=== PATIENT | female | born 1990 | race Caucasian/White ===

== ENCOUNTER 2017-06-21 21:54 | Emergency (ER) | payer OTHER ==
[2017-06-21 22:18] VITALS: RESP 18; TEMP 98.2; O2SAT 98
--- NOTE | 2017-06-21 23:23 | ED PDOC ---
HPI: Abdomen Time Seen by Provider: 06/21/17 22:19 Chief Complaint (Nursing): Abdominal Pain Chief Complaint (Provider): Flank Pain Bilaterally History Per: Patient History/Exam Limitations: no limitations Onset/Duration Of Symptoms: Worse Since (30 days ago) Current Symptoms Are (Timing): Still Present Location Of Pain/Discomfort: Epigastric, Suprapubic Additional Complaint(s): 27 yo female with a history of kidney stones, presents to the ED complaining of worsened flank pain,bilaterally, and abdominal pain towards both the epigastric and suprapubic region, onset of 30 days ago. Patient also reports of symptoms of dysuria, hematuria, and frequency, nausea, but no vomiting. Of note, [facility] with a urinary tract infection and given antibiotics and suggested to take Motrin. However, the patient states that she feels worse and experiences no relief. Past Medical History Reviewed: Historical Data, Nursing Documentation, Vital Signs Vital Signs: Last Vital Signs Temp 98.2 F 06/22/17 02:26 Pulse 76 06/22/17 02:26 Resp 18 06/22/17 02:26 BP 106/52 L 06/22/17 02:26 Pulse Ox 98 06/22/17 05:49 - Medical History PMH: Kidney Stones - Surgical History Other surgeries: stent for kidney stones; laser treatment for kidney stones - Family History Family History: States: Unknown Family Hx - Social History Current smoker - smoking cessation education provided: No Ex-Smoker (has not smoked in the last 12 months): No Alcohol: None Drugs: Denies - Home Medications Home Medications: Ambulatory Orders Medication Instructions Recorded Ciprofloxacin/Ciprofloxa HCl 500 mg PO BID #20 tab 06/04/15 [Ciprofloxacin] traMADol [Ultram] 50 mg PO TID PRN #15 tab 06/04/15 Levofloxacin [Levaquin] 750 mg PO DAILY #14 tablet 06/22/17 Naproxen [Naprosyn] 500 mg PO BID #30 tablet 06/22/17 - Allergies Allergies/Adverse Reactions: Allergies Allergy/AdvReac Type Severity Reaction Status Date / Time No Known Allergies Allergy Verified 06/04/15 11:22 Review of Systems ROS Statement: Except As Marked, All Systems Reviewed And Found Negative Gastrointestinal: Positive for: Nausea, Abdominal Pain (epigastric and suprapubic). Negative for: Vomiting Genitourinary Female: Positive for: Dysuria, Frequency, Hematuria Musculoskeletal: Positive for: Back Pain (flank pain bilaterally) Physical Exam - Reviewed Nursing Documentation Reviewed: Yes Vital Signs Reviewed: Yes - Physical Exam Appears: Positive for: Uncomfortable, In Acute Distress Head Exam: Positive for: ATRAUMATIC, NORMOCEPHALIC Skin: Positive for: Warm, Dry Eye Exam: Positive for: EOMI, PERRL ENT: Positive for: Other (tacky mucous membranes) Neck: Positive for: Painless ROM, Supple Cardiovascular/Chest: Positive for: Regular Rate, Rhythm. Negative for: Murmur Respiratory: Positive for: Normal Breath Sounds. Negative for: Respiratory Distress Gastrointestinal/Abdominal: Positive for: Soft, Tenderness (epigastric and suprapubic tenderness to palpation). Negative for: Mass, Distended, Guarding, Rebound Back: Positive for: L CVA Tenderness, R CVA Tenderness Extremity: Positive for: Normal ROM. Negative for: Deformity Lymphatic: Negative for: Adenopathy Neurologic/Psych: Positive for: Alert. Negative for: Motor/Sensory Deficits - Laboratory Results Result Diagrams: 06/21/17 23:30 06/21/17 23:30 - ECG O2 Sat by Pulse Oximetry: 98 (RA) Pulse Ox Interpretation: Normal Medical Decision Making Medical Decision Making: Time: --22:58 Impression: --Bilateral flank pain Differential: --pyelonephritis vs renal colic vs dehydration vs sepsis vs cystitis Plan: --vbg shock panel --CT ABD & Pelvis w/o po contrast --Labs --Lipase --ED Urine Dip --ED Urine Preg --Blood Culture --Urine Culture --Iv insetion --Urinalysis Reassess --00:[address] patient [address] over to [address] Story pending CT scan. Scribe Attestation: Documented by Raymon Chun acting as a scribe for Day Bell MD. Provider Attestation: All medical record entries made by the Scribe were at my direction and personally dictated by me. I have reviewed the chart and agree that the record accurately reflects my personal performance of the history, physical exam, medical decision making, and the department course for this patient. I have also personally directed, reviewed, and agree with the discharge instructions and disposition. Disposition - Clinical Impression Clinical Impression: Bilateral flank pain, Pyelonephritis - Patient ED Disposition Is Patient to be Admitted: Yes Discussed With : Feliz Story Doctor Will See Patient In The: ED - Disposition Disposition: Transfer of Care Disposition Time: 00:00 Condition: FAIR Prescriptions: Levofloxacin [Levaquin] 750 mg PO DAILY #14 tablet Naproxen [Naprosyn] 500 mg PO BID #30 tablet Print Language: KYRGYZ Patient Signed Over To: Feliz Story
[2017-06-21 23:40] LABS: VENOUS BLOOD GAS BASE EXCESS 0.3 mmol/L (0.0-2.0); VENOUS BLOOD GAS PCO2 48 mmHg (40-60); VENOUS BLOOD GAS PO2 23 mm/Hg (30-55); VENOUS BLOOD PH 7.35 (7.32-7.43)
[2017-06-21 23:45] LABS: BASO % 0.4 % (0.0-2.0); EOS # 0.9 K/uL (0.0-0.7); EOS % 9.6 % (0.0-4.0); HEMOGLOBIN 12.7 g/dL (12.0-16.0); LYMPH # 2.3 K/uL (1.0-4.3); LYMPH % 24.4 % (20.0-40.0); MEAN CELL VOLUME 91.3 fl (81.0-99.0); MEAN CORPUSCULAR HEMOGLOBIN 30.7 pg (27.0-31.0); MEAN CORPUSCULAR HGB CONC 33.7 g/dL (33.0-37.0); MEAN PLATELET VOLUME 9.4 fl (7.2-11.7); MONO # 0.7 K/uL (0.0-0.8); MONO % 7.6 % (0.0-10.0); NEUT # 5.5 K/uL (1.8-7.0); NRBC % 0.2 % (0.0-0.0); RBC 4.13 Mil/uL (3.80-5.20); RED CELL DISTRIBUTION WIDTH 13.4 % (11.5-14.5); WHITE BLOOD COUNT 9.5 K/uL (4.8-10.8)
[2017-06-21 23:52] LABS: SQUAMOUS EPITHIAL 2 /hpf (0-5); URINE BACTERIA MANY (<OCC); URINE BILIRUBIN NEGATIVE (NEGATIVE); URINE BLOOD LARGE (NEGATIVE); URINE CLARITY TURBID (Clear); URINE COLOR YELLOW (YELLOW); URINE GLUCOSE (UA) NEG (Normal); URINE LEUKOCYTE ESTERASE LARGE Leu/uL (Negative); URINE PROTEIN 100 mg/dL (NEGATIVE); URINE UROBILINOGEN 0.2-1.0 mg/dL (0.2-1.0)
[2017-06-21 23:59] LABS: ALB/GLOB RATIO 1.1 (1.0-2.1); ALBUMIN 3.4 g/dL (3.5-5.0); ALT/SGPT 52 U/L (9-52); AST/SGOT 31 U/L (14-36); BLOOD UREA NITROGEN 18 mg/dl (7-17); CALCIUM 9.5 mg/dL (8.4-10.2); GFR AFRICAN-AMERICAN > 60; GFR NON-AFRICAN AMERICAN > 60; LIPASE 126 U/L (23-300)
[2017-06-22] MEDS ORDERED: Sodium Chloride 0.9% 1,000 ML IV STA (00:09)
[2017-06-22] MEDS ORDERED: cefTRIAXone (Rocephin) 1 gm Inj ONE (00:17)
--- NOTE | 2017-06-22 00:44 | ED PDOC ---
- Laboratory Results Result Diagrams: 06/21/17 23:30 06/21/17 23:30 - ECG O2 Sat by Pulse Oximetry: 98 (RA) Pulse Ox Interpretation: Normal Medical Decision Making Medical Decision Making: Time: --00:00 Reassess --Patient signed over to the provider by Dr. Bell pending CT scan. --01:01 EXAM: CT Abdomen and Pelvis Without Intravenous Contrast EXAM DATE/TIME: 06/21/2017 10:58 PM CLINICAL HISTORY: 27 years old, female; Pain; Abdominal pain; Flank; Other: Bilateral flank pain; Prior surgery; Surgery date: 6+ months; Surgery type: Left stent placement for kidney stone 4yrs ago. Laser treatment for kidney stones. ; Additional info: Bilateral flank pain severe hematuria h/o stone TECHNIQUE: Axial computed tomography images of the abdomen and pelvis without intravenous contrast. All CT scans at this facility use one or more dose reduction techniques, viz.: automated exposure control; ma/kV adjustment per patient size (including targeted exams where dose is matched to indication; i.e. head); or iterative reconstruction technique. COMPARISON: CT - ABD PELVIS W/O PO OR IV CONT 2015-06-04 13:29 FINDINGS: Lower thorax: There is minimal bibasilar atelectasis. ABDOMEN: Liver: Unremarkable. Gallbladder and bile ducts: Unremarkable. No calcified stones. No ductal dilation. Pancreas: Unremarkable. No ductal dilation. Spleen: Unremarkable. No splenomegaly. Adrenals: Unremarkable. No mass. Kidneys and ureters: Several nonobstructing stones in in both kidneys. There is multifocal cortical scarring in the left kidney with moderate hydronephrosis and hydroureter. There is a left ureteral stent present, with dense calcification around the distal end of the stent within the bladder, and some calcification within the ureter and around the proximal end of the stent within the renal pelvis and Stomach and bowel: Unremarkable. No obstruction. No mucosal thickening. Appendix: No findings to suggest acute appendicitis. PELVIS: Bladder: Unremarkable. No stones. Reproductive: Unremarkable as visualized. ABDOMEN and PELVIS: Intraperitoneal space: Unremarkable. No free air. No significant fluid collection. Bones/joints: No acute fracture. No dislocation. Soft tissues: There is a small fat-containing umbilical hernia. Vasculature: Unremarkable. No abdominal aortic aneurysm. Lymph nodes: Unremarkable. No enlarged lymph nodes. IMPRESSION: Moderate left hydronephrosis. There is calcification around the proximal and distal ends of the left ureteral stent. --01:49 Patient reports improvement of symptoms and is stable for discharge home. Tolerating PO, vitals stable. Return precautions given. Diagnosis: Pyelonephritis Scribe Attestation: Documented by Raymon Chun acting as a scribe for Jarad Hickman MD. Provider Attestation: All medical record entries made by the Scribe were at my direction and personally dictated by me. I have reviewed the chart and agree that the record accurately reflects my personal performance of the history, physical exam, medical decision making, and the department course for this patient. I have also personally directed, reviewed, and agree with the discharge instructions and disposition. Disposition - Clinical Impression Clinical Impression: Bilateral flank pain, Pyelonephritis - POA Present On Arrival: None - Disposition Referrals: Stephani Hirsch MD [Medical Doctor] - Disposition: Routine/Home Disposition Time: :49 Condition: FAIR Prescriptions: Levofloxacin [Levaquin] 750 mg PO DAILY #14 tablet Naproxen [Naprosyn] 500 mg PO BID #30 tablet Instructions: Kidney Infection (DC) Forms: [facility] ([place] Islander) Print Language: CHINESE
[2017-06-22 02:28] VITALS: BP 106/52; PULSE 76
--- NOTE | 2017-06-22 11:15 | CT ---
PROCEDURE: CT Abdomen and Pelvis without intravenous contrast HISTORY: bilateral flank pain severe hematuria h/o stone COMPARISON: Unenhanced abdomen and pelvis CT 06/04/2015. TECHNIQUE: Helical CT of the abdomen and pelvis was performed without oral or intravenous contrast as per referring physician request. Contrast Dose: None Radiation dose: Total exam DLP = 596.00 mGy-cm. This CT exam was performed using one or more of the following dose reduction techniques: Automated exposure control, adjustment of the mA and/or kV according to patient size, and/or use of iterative reconstruction technique. FINDINGS: LOWER THORAX: Trace bibasilar dependent atelectasis is noted as well as small hiatal hernia. No significant interval change in the appearance of the visualized lung bases overall. LIVER: Unremarkable. No gross lesion or ductal dilatation. GALLBLADDER AND BILE DUCTS: Unremarkable. PANCREAS: Unremarkable. No gross lesion or ductal dilatation. SPLEEN: Unremarkable. ADRENALS: Unremarkable. No mass. KIDNEYS AND URETERS: There is moderate left hydronephrosis increased in the interval with the left double-J ureteral stent again identified in position. 1.2 by 0.8 cm calculus appears to be in the center of the proximal coil of the left ureteral stent and there is gross calcification in the periphery of the distal coil in the urinary bladder now appreciated in the interval, likely a function of chronicity of the stent. Defects in the periphery of the left renal cortex suggests multiple chronic left renal infarcts. Underlying lesions are not excluded at the left kidney and would be better evaluated by contrast CT or MRI with and without contrast. This is particularly true in the left renal apex which appears slightly hyperdense when compared to the surrounding renal parenchyma. Punctate intrarenal calculi are identified at the upper mid lower pole right kidney, nonobstructive. The urinary bladder is unremarkable exclusive of the calcified distal left ureteral stent coil. No mural thickening or nodularity is identified grossly. VASCULATURE: Unremarkable. No aortic aneurysm. BOWEL: The stomach is distended with retained food. Fecalization throughout a non obstructive small bowel is appreciated throughout the majority of small bowel in the abdomen which is a nonspecific pattern. Large bowel is also nonobstructed with prominent retained fecal material scattered throughout the transverse and ascending colon segments and a mild amount otherwise. APPENDIX: Unremarkable. Normal appendix. PERITONEUM: Unremarkable. No free fluid. No free air. LYMPH NODES: Unremarkable. No enlarged lymph nodes. BLADDER: See renal section above. REPRODUCTIVE: Unremarkable. BONES: No acute fracture. OTHER FINDINGS: None. IMPRESSION: Likely chronic left ureteral stent in position with prominent calcification in the center of the proximal coil of the stent at the left renal pelvis and gross calcifications surrounding the periphery of the distal coil in the urinary bladder. There is also an increase in left hydronephrosis now is appears moderate rather than presenting as limited fullness previously. 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 Underlying lesion not excluded. Follow-up MRI without contrast is advised when feasible. Multiple punctate intrarenal calculi right kidney, nonobstructive. Other lesser findings as discussed above.
== END 2017-06-22 02:28 | disposition home or self-care (01) ==
LOC: H.ER 21:54
DX: N10 Acute pyelonephritis (principal); R10.9 Unspecified abdominal pain
CPT/HCPCS: 74176; 80053; 81003; 81025; 82803; 83690; 85025; 87040; 87086; 96374; 99284; J0696; J1885; J7040

== ENCOUNTER 2017-07-08 14:52 | Emergency (ER) | payer OTHER, SELFPAY ==
[2017-07-08 15:05] VITALS: RESP 18; TEMP 98.9; O2SAT 96
[2017-07-08] MEDS ORDERED: Morphine 4 MG/ML VIAL ONE (16:21)
[2017-07-08 16:41] LABS: BASO % 0.5 % (0.0-2.0); EOS # 0.3 K/uL (0.0-0.7); EOS % 5.7 % (0.0-4.0); HEMOGLOBIN 14.7 g/dL (12.0-16.0); LYMPH # 1.4 K/uL (1.0-4.3); LYMPH % 26.4 % (20.0-40.0); MEAN CELL VOLUME 90.3 fl (81.0-99.0); MEAN CORPUSCULAR HGB CONC 33.3 g/dL (33.0-37.0); MEAN PLATELET VOLUME 9.6 fl (7.2-11.7); MONO # 0.5 K/uL (0.0-0.8); MONO % 9.6 % (0.0-10.0); NEUT # 3.1 K/uL (1.8-7.0); NEUT % 57.8 % (50.0-75.0); NRBC % 0.3 % (0.0-0.0); RBC 4.9 Mil/uL (3.80-5.20); RED CELL DISTRIBUTION WIDTH 13.3 % (11.5-14.5); WHITE BLOOD COUNT 5.3 K/uL (4.8-10.8)
--- NOTE | 2017-07-08 16:41 | ED PDOC ---
HPI: Back Time Seen by Provider: 07/08/17 15:39 Chief Complaint (Nursing): Abdominal Pain Chief Complaint (Provider): CVA tenderness (bilateral) History Per: Patient, Sales Development Consultant History/Exam Limitations: language barrier Onset/Duration Of Symptoms: Days (21) Quality Of Discomfort: Aching, Cramping Past Medical History Vital Signs: Last Vital Signs Temp 98.9 F 07/08/17 14:57 Pulse 125 H 07/08/17 14:57 Resp 18 07/08/17 14:57 BP 123/85 07/08/17 14:57 Pulse Ox 96 07/08/17 14:57 - Medical History PMH: Kidney Stones - Family History Family History: States: Unknown Family Hx - Home Medications Home Medications: Ambulatory Orders Medication Instructions Recorded Sulfamethoxazole/Trimethoprim 1 tab PO BID #20 tab 07/08/17 [Bactrim DS 800 mg-160 mg] oxyCODONE/Acetaminophen [Percocet 1 ea PO QID #40 tab 07/08/17 5/325 mg Tab] - Allergies Allergies/Adverse Reactions: Allergies Allergy/AdvReac Type Severity Reaction Status Date / Time No Known Allergies Allergy Verified 07/08/17 14:56 Review of Systems Constitutional: Positive for: Fever Physical Exam - Reviewed Nursing Documentation Reviewed: Yes Vital Signs Reviewed: Yes - Physical Exam Cardiovascular/Chest: Positive for: Regular Rate, Rhythm, Chest Non Tender. Negative for: Edema Respiratory: Positive for: Normal Breath Sounds Gastrointestinal/Abdominal: Positive for: Normal Exam, Bowel Sounds, Soft, Tenderness Back: Positive for: L CVA Tenderness, R CVA Tenderness - Laboratory Results Result Diagrams: 07/08/17 16:20 07/08/17 16:20 - ECG O2 Sat by Pulse Oximetry: 96 Disposition - Clinical Impression Clinical Impression: Urinary tract infection, Pyelonephritis, Bilateral flank pain, Bilateral nephrolithiasis - Patient ED Disposition Is Patient to be Admitted: No Doctor Will See Patient In The: Office - Disposition Referrals: Stephani Hirsch MD [Medical Doctor] - Disposition Time: 19:34 Condition: FAIR Additional Instructions: FOLLOW UP WITH [facility] [address] [address] Hours: Closed Opens 5:45AM Fri Take medication as prescribed Prescriptions: oxyCODONE/Acetaminophen [Percocet 5/325 mg Tab] 1 ea PO QID #40 tab Sulfamethoxazole/Trimethoprim [Bactrim DS 800 mg-160 mg] 1 tab PO BID #20 tab Forms: [employer] ([place]ymraes), [employer] [facility] (M[place]ese) Print Language: CYMRAES
[2017-07-08 16:50] LABS: SQUAMOUS EPITHIAL 2 /hpf (0-5); URINE BACTERIA MANY (<OCC); URINE BILIRUBIN NEGATIVE (NEGATIVE); URINE BLOOD LARGE (NEGATIVE); URINE CLARITY CLOUDY (Clear); URINE COLOR YELLOW (YELLOW); URINE GLUCOSE (UA) NEG (Normal); URINE LEUKOCYTE ESTERASE LARGE Leu/uL (Negative); URINE PROTEIN 100 mg/dL (NEGATIVE); URINE UROBILINOGEN 0.2-1.0 mg/dL (0.2-1.0)
[2017-07-08 16:53] LABS: ALB/GLOB RATIO 1.1 (1.0-2.1); ALBUMIN 4.1 g/dL (3.5-5.0); ALT/SGPT 54 U/L (9-52); AST/SGOT 41 U/L (14-36); BLOOD UREA NITROGEN 9 mg/dl (7-17); GFR AFRICAN-AMERICAN > 60; GFR NON-AFRICAN AMERICAN > 60
[2017-07-08 17:23] VITALS: BP 125/75; PULSE 80
--- NOTE | 2017-07-08 17:30 | CT ---
PROCEDURE: CT scan of the abdomen pelvis 07/08/2017 HISTORY: Rule out stones. COMPARISON: Comparison made with prior study 06/22/2017 TECHNIQUE: Contiguous helical/transaxial sections of the abdomen pelvis performed without oral or intravenous contrast material. Additional 2 dimensional sagittal and coronal reformats generated. Radiation dose: Total exam DLP = This CT exam was performed using one or more of the following dose reduction techniques: Automated exposure control, adjustment of the mA and/or kV according to patient size, and/or use of iterative reconstruction technique. FINDINGS: LOWER THORAX: Heart size normal. No significant pericardial effusion identified. There is a tiny hiatal hernia. Lung bases are clear without focal consolidation or effusion. LIVER: Liver demonstrates normal size measuring approximately 16 cm in CC dimension. No obvious hepatic mass or collection identified on this noncontrast GALLBLADDER AND BILE DUCTS: Study. The the gallbladder is physiologically distended. No evidence of intraluminal gallbladder calculi. PANCREAS: The pancreas appears unremarkable without obvious mass collection or calcification. No significant pancreatic ductal dilatation. SPLEEN: Unremarkable. No splenomegaly. ADRENALS: Unremarkable. KIDNEYS AND URETERS: In situ left ureteral stent. Re- demonstrated is an apparent elliptical shaped mineralization and/or calcification within the confines of the proximal coil portion of the left ureteral stent which measures approximately 11.7 mm in greatest CC dimension. In addition, there are a irregular areas of mineralization/calcification along the outer portions of the ureteral segment of the ureteral stent as well as a larger elliptical shaped mineralization/calcification surrounding the distal coiled within the confines of the urinary bladder. Findings suggest chronic blockage/stent failure. In addition, there is a small elliptical shaped bubble of air measuring 7.5 x 5.8 mm apparently within the confines of the anterior margin left renal cortex which was not present on the prior exam suggesting underlying ascending urinary tract infection. Clinical correlation recommended. . Cortical deformity -scarring changes of the left kidney unchanged. . Punctate calcifications seen about the right renal collecting system. No evidence of right-sided hydronephrosis. BLADDER: As above. Additionally, tiny amount of air seen within the anterior margin of the urinary bladder could secondary to a cystitis. REPRODUCTIVE: Grossly unremarkable as visualized. APPENDIX: Normal-appearing appendix. BOWEL: Evaluation of the bowel is somewhat limited due to the lack of oral contrast material. The stomach is incompletely distended. Visualized loops of small bowel exhibit normal contour and caliber. No evidence of acute mechanical small bowel obstruction. Stool and air seen throughout the large bowel. No definitive evidence of abnormal mural wall thickening. PERITONEUM: Unremarkable. No fluid collection. No free air. LYMPH NODES: Unremarkable. No enlarged lymph nodes. VASCULATURE: Unremarkable. No aortic aneurysm. BONES: Osseous structures appear grossly unremarkable. OTHER FINDINGS: None. IMPRESSION: Re- demonstrated is in situ left ureteral stent with. There is a elliptical shaped minimal sedation - calcification within confines of the proximal coiled in left renal pelvis and to a lesser degree along the surrounding the outer confines of the ureteral portion of the stent with a large elliptical shaped focus of mineralization calcification about the proximal coil within urinary bladder. Rule out stent chronic blockage and/or stent failure. In addition, there is a small bubble of air within upper pole collecting system left kidney and within the urinary bladder left which could be secondary to cystitis and ascending urinary tract infection Mild residual dilatation of the mid left renal collecting system and proximal left renal pelvis Scarring and deformity of the left renal cortex. Punctate nonobstructing calcifications scattered throughout the right renal collecting system.
[2017-07-08] MEDS ORDERED: cefTRIAXone (Rocephin) 1 gm Inj ONE (17:49)
[2017-07-08] MEDS ORDERED: Oxycodone/Acetaminophen 5/325 mg Tab PO STA (19:43)
== END 2017-07-08 20:09 | disposition home or self-care (01) ==
LOC: H.ER 14:52
DX: N12 Tubulo-interstitial nephritis, not specified as acute or chronic (principal); N20.0 Calculus of kidney
CPT/HCPCS: 74176; 80053; 81003; 81025; 85025; 96365; 96375; 99283; J0696; J2270